=== PATIENT | female | born 1955 | race Two or more races ===

== ENCOUNTER 2016-05-04 14:36 | Inpatient (IN) | payer MEDICAID, OTHER ==
[~2016-05-04] VITALS: Ht 165.1 cm; Wt 78.4 kg
[2016-05-04 15:34] LABS: Basophils # (auto) 0 uL; Basophils % (auto) 0.4 % (0.0-2.0); DEFINITIVE VIEW TRANSMISSION; Eosinophils # (auto) 0.1 uL; Eosinophils % (auto) 1.9 % (0.0-7.0); Hematocrit 37.4 % (36.0-46.0); Hemoglobin 12.8 g/dL (12.2-16.2); Lymphocytes # (auto) 0.5 uL; Lymphocytes % (auto) 8.3 % (10.0-50.0); Mean Corpuscular Hemoglobin 34.9 pg (28.0-32.0); Mean Corpuscular Hgb Conc. 34.1 g/dL (32.0-36.0); Mean Corpuscular Volume 102.5 fL (80.0-100.0); Monocytes # (auto) 0.5 uL; Monocytes % (auto) 7.6 % (0.0-12.0); Neutrophils # (auto) 5.1 uL; Neutrophils % (auto) 81.8 % (37.0-80.0); Red Cell Distribution Width 15.4 % (11.6-16.0); White Blood Cell 6.2 10^3/uL (4.4-10.8)
[2016-05-04 15:38] LABS: Platelet Count (auto) 76 10^3/uL (140-450)
[2016-05-04 15:48] LABS: Albumin 2.8 g/dL (3.4-5.0); Anion Gap 14 (5-15); BUN/Creatinine Ratio 20.2; Blood Urea Nitrogen 22 mg/dL (7-18); Calcium 8.4 mg/dL (8.5-10.1); Carbon Dioxide 16 mmol/L (21-32); Chloride 113 mmol/L (98-107); GFR African American 66 mL/min; GFR Non-African American 55 mL/min; Glucose 140 mg/dL (74-106); Potassium 4.1 mmol/L (3.5-5.1); Sodium 143 mmol/L (136-145)
[2016-05-04 15:57] LABS: Alkaline Phosphatase 202 U/L (45-117); Aspartate Aminotransferase 48 U/L (15-37); Bilirubin, Total 4.9 mg/dL (0.2-1.0); Total Protein 6.9 g/dL (6.4-8.2)
[2016-05-04 16:01] LABS: Acetaminophen < 2.0 ug/mL (10-30)
[2016-05-04] MEDS ORDERED: SPIR25TA89 PO (16:03)
[2016-05-04] MEDS ORDERED: RIFA550T PO (16:03)
[2016-05-04] MEDS ORDERED: LACT10SO PO (16:03)
[2016-05-04] MEDS ORDERED: OMEP20CA5 PO (16:03)
[2016-05-04] MEDS ORDERED: FURO40TA4 PO (16:03)
[2016-05-04] MEDS ORDERED: FOLI5INJ IJ ×2 (16:03)
[2016-05-04] MEDS ORDERED: ACET160S PO (16:03)
[2016-05-04 16:07] LABS: Salicylate < 0.2 mg/dL (2.8-20.0)
[2016-05-04 16:14] LABS: Macrocytosis Slight; Platelet Estimate Decreased
[2016-05-04] MEDS ORDERED: LACTULOSE 20Gm/30ML SOLN PR ONE (16:45)
[2016-05-04] MEDS ORDERED: SODIUM CHLORIDE 0.9% 1,000 ML IV ONE (16:45)
[2016-05-04] MEDS ORDERED: ONDANSETRON HCL 4 MG/2 ML VIAL IV PRN (18:00)
[2016-05-04] MEDS: InsuLIN REG 1unit/0.01ml Soln (100units/ml) SC SCH (18:00)
[2016-05-04] MEDS ORDERED: LACTULOSE 20Gm/30ML SOLN NG ONE (18:00)
[2016-05-04] MEDS ORDERED: MORPHINE SULF INJ 2 MG/ML SYRINGE 1ML IV PRN (18:00)
[2016-05-04] MEDS ORDERED: DEXTROSE (50%) 50ML SYRG IV PRN (18:00)
[2016-05-04] MEDS: LACTULOSE 20Gm/30ML SOLN PR SCH (18:00)
[2016-05-04] MEDS ORDERED: NITROGLYCERIN 0.4 MG SL TAB SL PRN (18:00)
[2016-05-04] MEDS: SODIUM CHLORIDE 0.9% 1,000 ML IV SCH ×2 (18:09→21:34)
[2016-05-04] MEDS ORDERED: FAMOTIDINE (10MG/ML) 2ML VL IV ONE (18:15)
[2016-05-04] MEDS: ACCU-CHEK COMFORT CURVE STRIP VI SCH (18:25)
[2016-05-04 18:29] LABS: Urine Bilirubin Negative (Negative); Urine Color Brown (Yellow); Urine Glucose Normal (Normal); Urine Ketone TRACE (Negative); Urine Mucus FEW (None Seen); Urine Nitrite Negative (Negative); Urine RBC 4 /hpf (0 - 4); Urine Squamous Epithelial Cell FEW /hpf (<5); Urine Urobilinogen Normal (Negative)
[2016-05-04 18:31] LABS: Urine Blood 1+ /uL (Negative)
[2016-05-04 18:36] LABS: INR 1.48 (0.9-1.15); Prothrombin Time 15.2 sec (9.37-12.3)
[2016-05-04 18:59] LABS: Temperature: 20.7 C (20.0-25.0)
[2016-05-04 20:07] VITALS: BP 156/74
[2016-05-04] MEDS ORDERED: FOLI1TAB6 PO (20:45)
[2016-05-05] VITALS: BP 139/68
[2016-05-05] MEDS: LACTULOSE 20Gm/30ML SOLN PR SCH ×2 (00:19→05:58)
[2016-05-05] MEDS: ACCU-CHEK COMFORT CURVE STRIP VI SCH ×4 (00:19→18:06)
[2016-05-05 03:50] VITALS: BP 134/71
[2016-05-05 05:41] LABS: Basophils # (auto) 0 uL; Basophils % (auto) 0.2 % (0.0-2.0); DEFINITIVE VIEW TRANSMISSION; Eosinophils # (auto) 0.2 uL; Eosinophils % (auto) 3.7 % (0.0-7.0); Hematocrit 32.6 % (36.0-46.0); Hemoglobin 10.9 g/dL (12.2-16.2); Lymphocytes # (auto) 0.7 uL; Lymphocytes % (auto) 11.9 % (10.0-50.0); Mean Corpuscular Hemoglobin 34.7 pg (28.0-32.0); Mean Corpuscular Hgb Conc. 33.4 g/dL (32.0-36.0); Mean Corpuscular Volume 103.8 fL (80.0-100.0); Mean Platelet Volume 9.1 fL (7.4-10.4); Monocytes # (auto) 0.5 uL; Monocytes % (auto) 9.4 % (0.0-12.0); Neutrophils # (auto) 4.4 uL; Neutrophils % (auto) 74.8 % (37.0-80.0); Platelet Count (auto) 67 10^3/uL (140-450); Red Cell Distribution Width 15.5 % (11.6-16.0); White Blood Cell 5.8 10^3/uL (4.4-10.8)
[2016-05-05] MEDS: SODIUM CHLORIDE 0.9% 1,000 ML IV SCH ×2 (05:57→18:57)
[2016-05-05] MEDS: InsuLIN REG 1unit/0.01ml Soln (100units/ml) SC SCH ×4 (06:00→18:00)
[2016-05-05 06:14] LABS: Albumin 2.5 g/dL (3.4-5.0); Calcium 7.7 mg/dL (8.5-10.1); Potassium 3.5 mmol/L (3.5-5.1)
[2016-05-05 06:20] LABS: Bilirubin, Total 4.9 mg/dL (0.2-1.0)
[2016-05-05 08:00] VITALS: BP 142/66
[2016-05-05] MEDS: FAMOTIDINE (10MG/ML) 2ML VL IV SCH (09:45)
[2016-05-05] MEDS: LACTULOSE 20Gm/30ML SOLN PO SCH ×2 (11:55→17:43)
[2016-05-05 12:00] VITALS: BP 147/73
[2016-05-05] MEDS ORDERED: THIAMINE INJ 100 MG, MULTIPLE VITAMIN 10 ML, FOLIC ACID 1 MG, MAGNESIUM SULF SDV 50% 8 ... IV SCH ×5 (12:00)
[2016-05-05] MEDS ORDERED: RIFAXIMIN 550 MG TAB PO SCH (14:00)
[2016-05-05] MEDS ORDERED: RIFAXIMIN 550 MG TAB PO ONE (14:15)
[2016-05-05] MEDS: PHYTONADIONE(VIT K) 5 MG TAB PO SCH (15:41)
[2016-05-05 16:00] VITALS: BP 148/76
[2016-05-05 21:50] VITALS: BP 148/65
[2016-05-05] MEDS: RIFAXIMIN 550 MG TAB PO SCH (22:25)
[2016-05-05] MEDS: MORPHINE SULF INJ 2 MG/ML SYRINGE 1ML IV PRN (22:25)
[2016-05-06] MEDS: LACTULOSE 20Gm/30ML SOLN PO SCH ×5 (00:22→23:52)
[2016-05-06] MEDS: ACCU-CHEK COMFORT CURVE STRIP VI SCH ×3 (00:28→12:00)
[2016-05-06] MEDS: SODIUM CHLORIDE 0.9% 1,000 ML IV SCH (04:17)
[2016-05-06] MEDS: InsuLIN REG 1unit/0.01ml Soln (100units/ml) SC SCH ×3 (05:12→12:00)
[2016-05-06 05:24] LABS: Basophils # (auto) 0 uL; Basophils % (auto) 0.5 % (0.0-2.0); DEFINITIVE VIEW TRANSMISSION; Eosinophils # (auto) 0.3 uL; Eosinophils % (auto) 4.5 % (0.0-7.0); Hematocrit 35.9 % (36.0-46.0); Hemoglobin 11.6 g/dL (12.2-16.2); Lymphocytes # (auto) 0.8 uL; Lymphocytes % (auto) 11.8 % (10.0-50.0); Mean Corpuscular Hemoglobin 34.6 pg (28.0-32.0); Mean Corpuscular Hgb Conc. 32.4 g/dL (32.0-36.0); Mean Corpuscular Volume 106.6 fL (80.0-100.0); Mean Platelet Volume 9.3 fL (7.4-10.4); Monocytes # (auto) 0.6 uL; Monocytes % (auto) 8.7 % (0.0-12.0); Neutrophils # (auto) 5.1 uL; Neutrophils % (auto) 74.5 % (37.0-80.0); Platelet Count (auto) 52 10^3/uL (140-450); Red Cell Distribution Width 16.6 % (11.6-16.0); White Blood Cell 6.8 10^3/uL (4.4-10.8)
[2016-05-06 05:39] VITALS: BP 156/79
[2016-05-06 05:45] LABS: Albumin 2.3 g/dL (3.4-5.0); Calcium 7.9 mg/dL (8.5-10.1); Potassium 3.7 mmol/L (3.5-5.1)
[2016-05-06 05:47] LABS: BUN/Creatinine Ratio 16.2
[2016-05-06 05:49] LABS: Bilirubin, Total 4.4 mg/dL (0.2-1.0); Total Protein 6.1 g/dL (6.4-8.2)
[2016-05-06 08:10] VITALS: BP 136/94
[2016-05-06] MEDS ORDERED: LEVOFLOXACIN 500MG 100 ML IV ONE ×2 (10:45→11:45)
[2016-05-06] MEDS: FAMOTIDINE (10MG/ML) 2ML VL IV SCH (10:50)
[2016-05-06] MEDS: RIFAXIMIN 550 MG TAB PO SCH ×2 (10:50→21:44)
[2016-05-06] MEDS: PHYTONADIONE(VIT K) 5 MG TAB PO SCH (10:50)
[2016-05-06 12:41] VITALS: BP 141/71
[2016-05-06] MEDS: SOD CHL 0.45% 1,000 ML IV SCH (14:45)
[2016-05-06 16:47] VITALS: BP 153/65
[2016-05-06 21:56] VITALS: BP 147/66
[2016-05-07] MEDS: SOD CHL 0.45% 1,000 ML IV SCH ×3 (01:10→18:15)
[2016-05-07 04:39] VITALS: BP 126/61
[2016-05-07 05:56] LABS: Basophils # (auto) 0 uL; Basophils % (auto) 0.6 % (0.0-2.0); DEFINITIVE VIEW TRANSMISSION; Eosinophils # (auto) 0.3 uL; Eosinophils % (auto) 5.7 % (0.0-7.0); Hematocrit 30.1 % (36.0-46.0); Lymphocytes # (auto) 0.9 uL; Mean Corpuscular Hgb Conc. 33.3 g/dL (32.0-36.0); Mean Corpuscular Volume 105.1 fL (80.0-100.0); Mean Platelet Volume 8.7 fL (7.4-10.4); Monocytes # (auto) 0.4 uL; Monocytes % (auto) 7.6 % (0.0-12.0); Neutrophils # (auto) 4.1 uL; Neutrophils % (auto) 71.1 % (37.0-80.0); Platelet Count (auto) 53 10^3/uL (140-450); Red Cell Distribution Width 15.9 % (11.6-16.0); White Blood Cell 5.8 10^3/uL (4.4-10.8)
[2016-05-07] MEDS: LACTULOSE 20Gm/30ML SOLN PO SCH ×4 (06:16→23:09)
[2016-05-07 06:29] LABS: Albumin 2.2 g/dL (3.4-5.0); BUN/Creatinine Ratio 19.1; Bilirubin, Total 4.3 mg/dL (0.2-1.0); Calcium 8.3 mg/dL (8.5-10.1); Potassium 3.6 mmol/L (3.5-5.1); Total Protein 5.3 g/dL (6.4-8.2)
[2016-05-07 08:07] VITALS: BP 121/54
[2016-05-07] MEDS ORDERED: PHYTONADIONE(VIT K) 5 MG TAB PO SCH (10:00)
[2016-05-07] MEDS: FAMOTIDINE (10MG/ML) 2ML VL IV SCH (10:39)
[2016-05-07] MEDS: LEVOFLOXACIN 500MG 100 ML IV SCH (10:40)
[2016-05-07] MEDS: RIFAXIMIN 550 MG TAB PO SCH ×2 (10:40→21:05)
[2016-05-07] MEDS: PHYTONADIONE(VIT K) 5 MG TAB PO SCH (10:41)
[2016-05-07] MEDS: THIAMINE INJ 100 MG, MULTIPLE VITAMIN 10 ML, FOLIC ACID 1 MG, MAGNESIUM SULF SDV 50% 8 ... IV SCH ×5 (12:06)
[2016-05-07 12:19] VITALS: BP 119/56
[2016-05-07] MEDS ORDERED: PANTOPRAZOLE SODIUM 40 MG/10 ML VIAL IV ONE (13:15)
[2016-05-07] MEDS: metroNIDAZOLE 500 MG TAB PO SCH ×2 (14:24→21:05)
[2016-05-07 15:52] LABS: Hematocrit 33.6 % (36.0-46.0); Hemoglobin 11.2 g/dL (12.2-16.2)
[2016-05-07 16:59] VITALS: BP 125/62
[2016-05-07 21:40] VITALS: BP 115/65
[2016-05-08 01:06] LABS: Hematocrit 28.1 % (36.0-46.0); Hemoglobin 9.5 g/dL (12.2-16.2)
[2016-05-08] MEDS: SOD CHL 0.45% 1,000 ML IV SCH ×2 (04:15→14:15)
[2016-05-08 04:38] VITALS: BP 115/66
[2016-05-08] MEDS: metroNIDAZOLE 500 MG TAB PO SCH ×3 (05:32→22:25)
[2016-05-08] MEDS: LACTULOSE 20Gm/30ML SOLN PO SCH ×4 (05:32→23:43)
[2016-05-08 06:00] LABS: Hematocrit 27.2 % (36.0-46.0); Hemoglobin 9.1 g/dL (12.2-16.2)
[2016-05-08 08:21] VITALS: BP 119/63
[2016-05-08] MEDS: LEVOFLOXACIN 500MG 100 ML IV SCH (09:35)
[2016-05-08] MEDS: PANTOPRAZOLE 40 MG TAB PO SCH (09:35)
[2016-05-08] MEDS: RIFAXIMIN 550 MG TAB PO SCH ×2 (09:35→22:25)
[2016-05-08] MEDS: THIAMINE INJ 100 MG, MULTIPLE VITAMIN 10 ML, FOLIC ACID 1 MG, MAGNESIUM SULF SDV 50% 8 ... IV SCH ×5 (13:16)
[2016-05-08 13:22] VITALS: BP 122/66
[2016-05-08 17:20] VITALS: BP 122/65
[2016-05-08 22:00] VITALS: BP 128/60
[2016-05-09] MEDS: MORPHINE SULF INJ 2 MG/ML SYRINGE 1ML IV PRN (01:38)
[2016-05-09 05:00] VITALS: BP 125/61
[2016-05-09] MEDS: metroNIDAZOLE 500 MG TAB PO SCH (06:09)
[2016-05-09] MEDS: LACTULOSE 20Gm/30ML SOLN PO SCH (06:09)
[2016-05-09 08:21] VITALS: BP 133/66
[2016-05-09] MEDS: SOD CHL 0.45% 1,000 ML IV SCH ×2 (10:15)
[2016-05-09] MEDS: RIFAXIMIN 550 MG TAB PO SCH (10:57)
[2016-05-09] MEDS: PANTOPRAZOLE 40 MG TAB PO SCH (10:57)
[2016-05-09] MEDS: LEVOFLOXACIN 500MG 100 ML IV SCH (10:58)
[2016-05-09 11:32] VITALS: BP 125/61
== END 2016-05-09 13:20 | disposition home or self-care (01) | DRG 280 ==
LOC: ER 14:41 → TELE 14:42 → DOU IN ICU 20:22 → TELE-WESTW 05-05 20:18
PROVIDERS: ADMIT Internal Medicine; ATTEND Internal Medicine
DX: K70.31 Alcoholic cirrhosis of liver with ascites (principal); K70.40 Alcoholic hepatic failure without coma; E43 Unspecified severe protein-calorie malnutrition; J18.9 Pneumonia, unspecified organism; D68.9 Coagulation defect, unspecified; I50.32 Chronic diastolic (congestive) heart failure; E11.21 Type 2 diabetes mellitus with diabetic nephropathy; D69.6 Thrombocytopenia, unspecified; E11.22 Type 2 diabetes mellitus with diabetic chronic kidney disease; E87.1 Hypo-osmolality and hyponatremia; E87.8 Other disorders of electrolyte and fluid balance, not elsewhere classified; K74.60 Unspecified cirrhosis of liver; D63.8 Anemia in other chronic diseases classified elsewhere; N39.0 Urinary tract infection, site not specified; E11.65 Type 2 diabetes mellitus with hyperglycemia; E83.51 Hypocalcemia; N18.3 Chronic kidney disease, stage 3 (moderate); Z68.28 Body mass index [BMI] 28.0-28.9, adult
CPT/HCPCS: 36415; 36600; 51702; 70450; 71010; 76700; 80053; 80329; 81001; 82140; 82270; 82607; 82746; 82805; 82962; 83036; 84484; 85014; 85018; 85025; 85045; 85049; 85610; 86850; 86900; 86901; 87081; 87086; 87493; 93005; 95819; 96361; 96374; 97001; 97110; 97116; 97530; C9113; G0434; J1956; J2405; J3490